=== PATIENT | female | born 1970 | race Caucasian/White ===

== ENCOUNTER 2016-06-27 16:02 | Inpatient (IN) | payer BC ==
--- NOTE | 2016-06-27 16:03 | HP ---
SUPERVISING PHYSICIAN: Festus Li M.D. CHIEF COMPLAINT: Right elbow pain. HISTORY OF PRESENT ILLNESS: Ms. Lina Sepulveda is a 46 year-old female patient that is a patient of Dr. Li who was previously seen 3 days prior to admission in the clinic for right elbow pain. She noted the pain had started approximately 2 weeks previously and denies any obvious precipitating events or injuries or other traumatic events. She notes that the pain is diffuse over the elbow and radiates to the upper arm, shoulder and forearm. She notes that the intensity is constant and sharp. She had an injection 3 days previously with Celestone and notes that the pain has worsened since the injection to the elbow. Given that the patient has failed to respond to previous outpatient treatment plan and the pain is worsening with a concern for possible infection an elevated white count, the patient to be admitted to the hospital for further treatment and evaluation with orthopedic consultation. The patient is admitted in stable condition. PAST MEDICAL HISTORY: 1. Hyperlipidemia. 2. Diverticulosis. 3. Liver hemangioma. PAST SURGICAL HISTORY: 1. Appendectomy. 2. Cholecystectomy. 3. Hernia repair. 4. Hysterectomy with bilateral salpingo-oophorectomy. 5. Tonsillectomy. 6. Left hemicolectomy for recurrent diverticulosis. HOME MEDICATIONS: 1. Estradiol 0.1 mg daily Sundays and Wednesdays. 2. Robinul 1 mg twice daily as needed. 3. Gabapentin 3 tablets daily. 4. Citalopram 40 mg daily. 5. Gemfibrozil 600 mg twice daily. ALLERGIES: NO KNOWN DRUG ALLERGIES. FAMILY HISTORY: History of hypothyroidism in her mother, otherwise unremarkable. SOCIAL HISTORY: The patient is and a homemaker. Lives in [place]. She is a previous smoker but quit many years previous. She does drink alcohol occasionally but denies any illicit drug use. REVIEW OF SYSTEMS: CONSTITUTIONAL: Positive for insomnia due to pain in the elbow, but negative for any fatigue, fever, night sweats. CARDIOVASCULAR: Denies any chest pains, palpitations, tachycardia, orthopnea, edema or syncopal episodes. RESPIRATORY: Denies any cough, dysuria, hemoptysis. GASTROINTESTINAL: Negative for any abdominal pains, heartburn, constipation, diarrhea or stool changes. GENITOURINARY: Negative for any hematuria, menstrual problems, polyuria or any vagina discharges. MUSCULOSKELETAL: Positive as noted in History of Present Illness for pain in the right elbow. NEUROLOGIC: Negative for any paresthesia or weakness. PHYSICAL EXAMINATION: VITAL SIGNS: Temperature 98.3, pulse 82, blood pressure 106/70, respirations 16 , O2 sat 94% on room air. Weight on admission 106.8 kg. GENERAL: The patient appears to be in no distress. She is well-nourished, well -hydrated. HEENT: Tympanic membranes are clear bilaterally. Oropharynx is pink and moist without any lesions. NECK: No jugular venous distention. CHEST: Lungs are clear to auscultation bilaterally without any rhonchi, wheezing or rales. CARDIOVASCULAR: Regular rate and rhythm without appreciable murmurs, gallops, or rubs. ABDOMEN: Obese but soft, non-tender with positive bowel sounds. EXTREMITIES: There is notable pain over the right olecranon process and lateral epicondyle. She does have good passive range of motion. She had some pain noted on resistance with lateral rotation of the hand. Calibration Tester are strong and equal. There is no reported sensation changes. No reported paresthesias. The area is without any noticeable erythema or swelling. There is pain with palpation directly over the lateral epicondyle but no areas of crepitus. No consolidations. NEUROLOGIC: She is alert and oriented times three. LABORATORY: White count on admission showed a mild leukocytosis of 13.1, hemoglobin 13.2, hematocrit 38.6, platelet count 287,000. Differential shows to be without a left shift. Chemistries show normal electrolytes with potassium 3.7, BUN 21, creatinine 0.6, glucose 118. Liver functions show to be within normal limits. C reactive protein was slightly elevated at 1.1. She had 2 blood cultures that are pending. CT of the elbow without contrast is pending. ASSESSMENT: 1. Acute lateral epicondylitis of the right elbow with exacerbation failing to respond to outpatient treatment with intraarticular injection with Celestone with no obvious signs of infection. 2. History of diverticulosis. 3. Hyperlipidemia. 4. Leukocytosis likely to demargination due to ongoing pain, but can not fully rule out infection at time of admit. PLAN: The patient will be admitted to the hospital for further treatment and evaluation. Consultation with orthopedic services through Dr. Lepe is requested and pending. Will provide the patient with pain control currently with Hydrocodone and some Toradol. Will also utilize cold and warm compresses as needed to decrease some inflammation, and again await consultation from orthopedic services and results of the CT scan. Will consider starting the patient on vancomycin for concerns for underlying infection, but will wait for final consultation with Dr. Lepe in regards to ultimate treatment plan and antibiotic coverage. Anticipate discharge possibly tomorrow with anticipated length of stay to be 1 to 2 days. Until then, will continue to monitor the patient closely and treat appropriately. #[id number] [facility]
[2016-06-27] MEDS ORDERED: ACETAMINOPHEN 325 MG TAB PO PRN (16:38)
[2016-06-27] MEDS ORDERED: HYDROcodone 5MG/APAP 325MG 1 EA TAB PO PRN (16:38)
[2016-06-27] MEDS ORDERED: IV SET AND CAP CHANGE INJ INJ SCH (17:00)
[2016-06-27] MEDS ORDERED: VANCOMYCIN PER PHARMACY INJ SCH (17:00)
[2016-06-27] MEDS ORDERED: PANTOPRAZOLE SODIUM IV 40 MG VIAL IV SCH (18:00)
[2016-06-27] MEDS ORDERED: KETOROLAC TROMETHAMINE INJ 60 MG/2 ML VIAL IM ONE (18:34)
[2016-06-27] MEDS ORDERED: SODIUM CHLORIDE 0.9% 10 ML VIAL ONE (18:35)
[2016-06-27] MEDS: KETOROLAC TROMETHAMINE INJ 30 MG/ML VIAL IV SCH (18:44)
[2016-06-27] MEDS: ACETAMINOPHEN W/COD #3 TAB 1 EA TAB PO PRN (19:26)
--- NOTE | 2016-06-27 19:37 | PCM.CORE ---
Physician DVT/VTE - Nurse DVT Assessment & Total Each Risk Factor Represents 3 Points: Medical PT with Hx of IA, CHF, Severe infection/sepsis Each Risk Factor Represents 1 Point: Age 41-60 Each Risk Factor is 1 Point: Obesity (BMI >25) DVT Assessment Score: 5 - 5 or more Very High Risk Treatments: Early Ambulation *, Sequential Compression Device Pharmacological: Enoxaparin 40mg SQ Daily
[2016-06-27] MEDS ORDERED: ENOXAPARIN SODIUM 40 MG/0.4 ML SYG SUBCU SCH (20:00)
--- NOTE | 2016-06-27 20:15 | CONS ---
DATE OF CONSULTATION: 06/27/16 CHIEF COMPLAINT: Right elbow pain. HISTORY OF PRESENT ILLNESS: Anca is a 46 year-old female with a history of right elbow pain that has been going on for about 3 weeks. Anca had an injection done for that pain several days ago and ever since then has had pretty severe pain that has limited some of her activities. She denies any direct trauma. She has not had any fevers, denies any radiation of pain and also denies any neurologic symptoms. She was seen by Dr. Li and Dr. Li randall some labs. He had some slight concern which may have had an adverse reaction to the injection, and may have developed infection. As such, Dr. Li took the appropriate steps to have her admitted. Subsequent to that, Dr. Li called me to consult on the patient. PAST SURGICAL HISTORY: 1. Appendectomy. 2. Cholecystectomy. 3. Herniorrhaphy. 4. Hysterectomy. 5. Tonsillectomy. 6. Tubal ligation. 7. Partial colectomy. CURRENT MEDICATIONS: 1. Gemfibrozil. 2. Citalopram. 3. Tylenol #3. 4. Naprosyn. 5. Vivelle. 6. Robinul. ALLERGIES: NO KNOWN DRUG ALLERGIES. SOCIAL HISTORY: She does not drink, smoke or use any illicit drugs. REVIEW OF SYSTEMS: Negative except as indicated in the history of present illness. PHYSICAL EXAMINATION: MENTAL STATUS: The patient is awake, alert, and is able to give a good history and participate in the physical. The patient is oriented to person, place and time. SKIN: Normal tone and turgor. MUSCULOSKELETAL: She has full range of motion in the elbow and she only has pain on the lateral aspect with the extreme of flexion. Otherwise she is without significant pain during range of motion. She has no erythema laterally. She has no swelling and there is no increased warmth at this time. Sensation is intact. 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 LABORATORY: Laboratories were drawn and show a white count of approximately 13 , an ESR of 12 and a CRP of 1.1. ASSESSMENT: 1. Elbow pain status post injection. PLAN: She has had no true progression of the pain since the injection itself. She has no erythema. No discrete fluid collection obvious. There is no increased warmth and she has had no constitutional symptoms. At this point, I do not think we are dealing with any type of infectious process. Despite that, I think it would be prudent to keep an eye on her in the hospital. We are going to hold off on any antibiotics and utilize some antiinflammatories. Will reassess and ensure she is making positive progress. I appreciate you allowing me to participate in this patient's care. #[id number] [facility]
[2016-06-27] MEDS: SODIUM CHLORIDE 0.9% (FLUSH) 10 ML SYG IV PRN ×2 (20:37→22:23)
[2016-06-27] MEDS ORDERED: TEMAZEPAM 15 MG CAP PO PRN (21:22)
[2016-06-27] MEDS ORDERED: MORPHINE SULFATE INJ 10 MG/ML VIAL IV ONE (22:03)
[2016-06-28] MEDS ORDERED: KETOROLAC TROMETHAMINE INJ 60 MG/2 ML VIAL IM ONE (02:03)
[2016-06-28] MEDS: KETOROLAC TROMETHAMINE INJ 30 MG/ML VIAL IV SCH ×4 (02:20→14:21)
[2016-06-28] MEDS: SODIUM CHLORIDE 0.9% (FLUSH) 10 ML SYG IV PRN (02:21)
[2016-06-28] MEDS ORDERED: ACETAMINOPHEN W/COD #3 TAB 1 EA TAB ONE (10:01)
[2016-06-28] MEDS: ACETAMINOPHEN W/COD #3 TAB 1 EA TAB PO PRN (10:02)
--- NOTE | 2016-06-28 11:00 | PN ---
DATE: 06/28/16 Ms. Lina Sepulveda is resting comfortably with the arm fully flexed. Upon waking her, she fully extends the arm. There continues to be a lack of swelling, erythema, or crepitus. She is currently afebrile. At this point, as last night, I think are simply dealing with a reaction to the steroid injection that she was given previously. I do not see any indication at this time to leave her as an inpatient. I think she is okay for discharge, however, she should be given instructions on return immediately should any change in her condition occur. Otherwise, she will followup with Dr. Li per his schedule. #[id number] [facility]
[2016-06-28] MEDS ORDERED: GLYCOPYRROLATE 1 MG PO PRN (12:49)
[2016-06-28] MEDS ORDERED: HYDROcodone 10MG/APAP 325MG 1 EA TAB PO ONE (12:49)
[2016-06-28 14:50] VITALS: BP 113/75; TEMP 98.3; O2SAT 93
[2016-06-28] MEDS ORDERED: GEMFIBROZIL 600 MG TAB PO SCH (16:30)
[2016-06-28] MEDS ORDERED: GABAPENTIN PO SCH (17:00)
[2016-06-28] MEDS ORDERED: ENOXAPARIN SODIUM 40 MG/0.4 ML SYG SUBCU SCH (21:00)
[2016-06-28] MEDS ORDERED: PANTOPRAZOLE SODIUM IV 40 MG VIAL IV SCH (21:00)
[2016-06-28] MEDS ORDERED: SODIUM CHLORIDE 0.9% (FLUSH) 10 ML SYG IV SCH (21:00)
[2016-06-29] MEDS ORDERED: CITALOPRAM HBR 20 MG TAB PO SCH (09:00)
[2016-06-30] MEDS ORDERED: ESTRADIOL 0.1 MG TD SCH (12:49)
--- NOTE | 2016-07-01 13:29 | DS ---
SUPERVISING PHYSICIAN: Vitaliy Myrick MD DISCHARGE DIAGNOSIS: 1. Acute lateral epicondylitis of the right elbow with exacerbation from reaction to steroid injection in the outpatient setting, intraarticular injection with Celestone without any obvious signs of infection. 2. History of diverticulosis. 3. Hyperlipidemia. 4. Leukocytosis likely to demargination due to ongoing pain without any signs or symptoms of infection after hospitalization and at time of discharge. HISTORY OF PRESENT ILLNESS: Ms. Lina Sepulveda is a 46-year-old female patient that is a patient of Dr. Li who was previously seen 3 days prior to admission in the clinic for right elbow pain. She noted the pain had started approximately 2 weeks previously and denies any obvious precipitating events or injuries or other traumatic events. She notes that the pain is diffuse over the elbow and radiates to the upper arm, shoulder and forearm. She notes that the intensity is constant and sharp. She had an injection 3 days previously with Celestone and notes that the pain had worsened since the injection to the elbow. Given that the patient had failed to respond to previous outpatient treatment plan and the pain was worsening with a concern for possible infection an elevated white count, the patient was admitted to the hospital for further treatment and evaluation with orthopedic consultation. The patient is admitted in stable condition. LABORATORY: White count on admission showed a white count of 13.1. At discharge, it was 8.7. Otherwise, CBC was within normal limits. Chemistries shows normal electrolytes both on admission and at discharge with potassium 4.1 , BUN and creatinine were essentially unchanged, at discharge BUN 21 and creatinine 0.61. C-reactive protein was 1.1. Liver functions were all within normal limits. MICROBIOLOGY: Two blood cultures were collected and showed no growth at 48 hours. RADIOLOGY: There were no radiographic studies completed of the arm. On consultation with Dr. Lepe, he recommended that she not have a CT of the elbow as there were no significant signs of infection. CONSULTATION: Orthopedic services, [place] Lepe MD. Please refer to his consultation report for full details. HOSPITAL COURSE: The patient was admitted on 06/28/16 with initiation of treatment to include pain medicine with anti-inflammatories, cold compresses and rest. Initially, the patient was to have antibiotic started to include Rocephin. However, after the patient was seen in consultation with orthopedic services, Dr. Lepe recommended that she not be started on antibiotics as there was no significant sign of infection. He felt that the leukocytosis was more likely an inflammatory response to the localized injection. The patient progressed well and did well with pain management and on the morning of discharge, had much more range of motion and was having less pain in the elbow and was felt well enough to be continued in the outpatient setting. The patient did have some insomnia and requested some sleep aid as she had not been sleeping for the last three days prior to admission. She was given temazepam and noted she had a significant amount of sleep and was feeling much better with that. Therefore, she requested she have at least a couple days more at home to assist with insomnia. PLAN: The patient was discharged on 06/28/16 with instructions to followup with Dr. Li in the following week and to resume all her home medications as instructed and start new medications as directed. Per Dr. Lepe's instructions, she was to have no pulling, pushing or exercises with her arm until she was seen in followup with Dr. Li or the arm was completely better. She could use cold compresses as tolerated to help decrease inflammation and utilize pain management to include meloxicam, anti-inflammatories, and to return to the hospital should she have any worsening of her symptoms. At time of discharge, she had new prescriptions to include: 1. Restoril 15 mg at bedtime, #5, for insomnia. 2. Vivlodex 5 mg daily, #14. She was instructed to start taking an [id number] proton pump inhibitor should she have any indigestion type symptoms while taking the Meloxicam. She was discharged in stable condition with instructions to followup with Dr. Li. #[id number] [facility]
== END 2016-06-28 17:55 | disposition home or self-care (01) | DRG 558 ==
LOC: MS 16:02 → OBSVTOIN 16:02
PROVIDERS: ADMIT Family Medicine; ATTEND Nurse Practitioner Family
DX: M77.11 Lateral epicondylitis, right elbow (principal); Z68.41 Body mass index [BMI] 40.0-44.9, adult; E78.5 Hyperlipidemia, unspecified; T38.0X5A Adverse effect of glucocorticoids and synthetic analogues, initial encounter; E66.9 Obesity, unspecified; D72.829 Elevated white blood cell count, unspecified; Z87.891 Personal history of nicotine dependence; Y92.89 Other specified places as the place of occurrence of the external cause; Z79.899 Other long term (current) drug therapy; Z79.1 Long term (current) use of non-steroidal anti-inflammatories (NSAID)

== ENCOUNTER → 2016-08-14 | Outpatient (CLI) | payer BC ==
--- NOTE | 2016-08-15 08:34 | MRI ---
EXAM DESCRIPTION: MRI right elbow CLINICAL HISTORY: Right elbow pain for 2 months. Previous steroid injection. Tendon rupture COMPARISON: None. TECHNIQUE: Multiplanar, multisequence MR images of the right elbow FINDINGS: Tendinosis and high-grade interstitial origin tear of the common extensor tendon spanning about 9 x 9 mm at the tendon insertion. Interstitial fluid extends over the proximal tendon about 1.9 cm in length. Radial collateral and lateral ulnar collateral ligaments are intact Common flexor tendon is normal. Ulnar collateral ligament intact Mild insertional chronic biceps tendinosis. No tear. Brachialis tendon is normal. Mild insertional triceps tendinosis. The muscles around the elbow are normal. No high-grade central articular chondrosis or osteochondral lesion. Minimal edema along the anterior medial humerus likely from marginal chondrosis. No joint effusion or synovitis Red marrow seen over small region distal humerus and proximal radius. No diagnostic abnormality along the neurovascular structures. There is mild increased signal in the ulnar nerve in the cubital tunnel. No distal denervation edema or atrophy IMPRESSION: Tendinosis and high-grade interstitial partial tear, extensor tendon Electronically signed by: Trace Esposito MD 08/15/2016 8:33 AM CDT
== END | disposition home or self-care (01) ==
LOC: MRI 08:56
PROVIDERS: ATTEND Orthopaedic Surgery
DX: M62.10 Other rupture of muscle (nontraumatic), unspecified site (principal)

== ENCOUNTER 2019-02-10 18:14 | Emergency (ER) | payer BC, MEDICAID ==
[2019-02-10 18:40] VITALS: TEMP 99.3
[2019-02-10] MEDS ORDERED: KETOROLAC TROMETHAMINE INJ 30 MG/ML VIAL IV ONE (19:37)
--- NOTE | 2019-02-10 19:37 | ED.PDOC ---
History of Present Illness - General Chief Complaint: GI Problem Time Seen by Provider: 02/10/19 19:36 Information Source: patient Exam Limitations: no limitations - History of Present Illness Initial Comments: 48 yo F who presents for LLQ abd pain, described as burning sensation, constant, associated decreased appetite, nausea, pain is worse with urination. Hx of diverticulitis with remote hx of colon resection. Denies f/c, cough, congestion, CP, SOB, dysuria, hematuria, v/d, hx of kidney stones, vag sx, concerns for STD. Review of Systems - Review of Systems Constitutional: Denies: chills, fever EENTM: States: no symptoms reported Respiratory: Denies: cough, short of breath Cardiology: Denies: chest pain, edema, palpitations Gastrointestinal/Abdominal: States: abdominal pain, nausea. Denies: constipation, diarrhea, vomiting Genitourinary: Denies: dysuria, frequency, hematuria Musculoskeletal: Denies: back pain, neck pain Skin: Denies: change in color, lesions, rash Neurological: Denies: headache, numbness, weakness Endocrine: Denies: increased thirst, increased urine Past Medical History (General) - Patient Medical History Hx Seizures: No Hx Stroke: No Hx Dementia: No Hx Asthma: No Hx of COPD: No Hx Cardiac Disorders: Yes - [place] 2014 Hx Congestive Heart Failure: No Hx Pacemaker: No Hx Hypertension: No Hx Thyroid Disease: No Hx Diabetes: Yes - on metformin Hx Gastroesophageal Reflux: No Hx Renal Disease: No Hx Cancer: No Hx of HIV: No Hx Hepatitis C: No Hx MRSA: No Surgical History: appendectomy, tonsillectomy, Hysterectomy, other - Vaccination History Hx Tetanus, Diphtheria Vaccination: Yes Hx Influenza Vaccination: No Hx Pneumococcal Vaccination: No - Social History Hx Tobacco Use: No Hx Chewing Tobacco Use: No Hx Alcohol Use: No Hx Substance Use: No Hx Substance Use Treatment: No Hx Depression: Yes Hx Physical Abuse: No Hx Emotional Abuse: No Hx Suspected Abuse: No - Female History Patient : No Family Medical History - Family History Mother Family History: Unknown Physical Exam - Physical Exam General Appearance: Alert, Comfortable, No apparent distress, Well Developed, Well Nourished, Other - Obese Eyes, Ears, Nose, Throat Exam: normal ENT inspection Neck: non-tender, full range of motion, supple Respiratory: chest non-tender, lungs clear, normal breath sounds, no respiratory distress, no accessory muscle use Cardiovascular/Chest: normal peripheral pulses, regular rate, rhythm, no edema, no gallop, no JVD, no murmur Peripheral Pulses: No deficit Gastrointestinal/Abdominal: normal bowel sounds, soft, no organomegaly, no pulsatile mass, tenderness - LLQ Back Exam: normal inspection, no CVA tenderness, no vertebral tenderness Extremity: normal range of motion, non-tender, normal inspection, no pedal edema, no calf tenderness Neurologic: no motor/sensory deficits, alert, normal mood/affect Skin Exam: normal color, warm/dry Progress - Progress Progress: 02/10/19 21:47 I have explained and reviewed all results with the pt. I explained that emergent conditions may arise and to return to the ER for new, worsening, or any persistent conditions. I've explained the importance of f/u for recheck. All questions and concerns addressed at this time. Pt understands and agrees with plan. Pt well appearing, NAD, is stable for discharge. Elvira Alvarez MD Emergency Medicine Physician Billing Number [id number] - Results/Orders Results/Orders: 02/10/19 19:36 Hold Metformin x 48Hrs [id number] Laboratory Results - last 24 hr 02/10/19 02/10/19 02/10/19 18:53 18:57 18:57 WBC 10.7 RBC 4.37 Hgb 13.1 Hct 37.8 MCV 86.4 MCH 30.1 MCHC 34.8 RDW 13.6 Plt Count 323 MPV 7.5 Absolute Neuts (auto) 6.60 Absolute Lymphs (auto) 3.10 Absolute Monos (auto) 0.60 Absolute Eos (auto) 0.40 Absolute Basos (auto) 0.00 Neutrophils % 61.5 Lymphocytes % 28.7 Monocytes % 5.4 Eosinophils % 4.1 Basophils % 0.3 Sodium Potassium Chloride Carbon Dioxide Anion Gap BUN Creatinine BUN/Creatinine Ratio Random Glucose Serum Osmolality Calcium Total Bilirubin 0.5 Direct Bilirubin 0.1 Indirect Bilirubin 0.4 AST 25 ALT 27 Alkaline Phosphatase 89 Serum Total Protein 7.6 Albumin 4.2 Urine Color Yellow Urine Appearance Sl cloudy Urine pH 5.5 Ur Specific Cumming 1.015 Urine Protein Negative Urine Glucose (UA) Negative Urine Ketones Negative Urine Blood Negative Urine Nitrite Negative Urine Bilirubin Negative Urine Urobilinogen 0.2 Ur Leukocyte Esterase Trace H Urine RBC 0-1 Urine WBC 1-3 Ur Epithelial Cells 3-5 Urine Bacteria 2+ H 02/10/19 18:57 WBC RBC Hgb Hct MCV MCH MCHC RDW Plt Count MPV Absolute Neuts (auto) Absolute Lymphs (auto) Absolute Monos (auto) Absolute Eos (auto) Absolute Basos (auto) Neutrophils % Lymphocytes % Monocytes % Eosinophils % Basophils % Sodium 142 Potassium 3.8 Chloride 102 Carbon Dioxide 28 Anion Gap 15.8 BUN 10 Creatinine 0.58 L BUN/Creatinine Ratio 17.2 Random Glucose 97 Serum Osmolality 282.1 Calcium 9.6 Total Bilirubin Direct Bilirubin Indirect Bilirubin AST ALT Alkaline Phosphatase Serum Total Protein Albumin Urine Color Urine Appearance Urine pH Ur Specific Cum[place] Urine Protein Urine Glucose (UA) Urine Ketones Urine Blood Urine Nitrite Urine Bilirubin Urine Urobilinogen Ur Leukocyte Esterase Urine RBC Urine WBC Ur Epithelial Cells Urine Bacteria CT abd/pelvis: EXAM: CT Abdomen and Pelvis With Intravenous Contrast CLINICAL HISTORY: The patient is 48 years old and is Female; pain TECHNIQUE: Axial computed tomography images of the abdomen and pelvis with intravenous contrast. Sagittal and coronal reformatted images were created and reviewed. This CT exam was performed using one or more of the following dose reduction techniques: automated exposure control, adjustment of the mA and/or kV according to patient size, and/or use of iterative reconstruction technique. COMPARISON: November 19, 2012 FINDINGS: Lung bases: Unremarkable. No mass. No consolidation. ABDOMEN: Liver: Hyperdense lesion within the posterior right lobe of liver, unchanged from prior study from October 2012, favoring benign etiology . Diffuse low- attenuation throughout the liver consistent with hepatocellular disease/fatty infiltration. Gallbladder and bile ducts: Cholecystectomy No ductal dilation. Pancreas: Unremarkable. No mass. No ductal dilation. Spleen: Unremarkable. No splenomegaly. Adrenals: Unremarkable. No mass. Kidneys and ureters: Unremarkable. No solid mass. No hydronephrosis. Stomach and bowel: Colonic diverticulosis with focal wall thickening of the sigmoid colon consistent with acute diverticulitis. No obstruction. PELVIS: Appendix: No findings to suggest acute appendicitis. Bladder: Unremarkable. No mass. Reproductive: Unremarkable as visualized. ABDOMEN and PELVIS: Intraperitoneal space: Unremarkable. No free air. No significant fluid collection. Bones/joints: No acute fracture. No dislocation. Soft tissues: Unremarkable. Vasculature: Scattered atherosclerotic vascular calcifications No abdominal aortic aneurysm. Lymph nodes: Unremarkable. No enlarged lymph nodes. IMPRESSION: 1. Findings consistent with acute diverticulitis sigmoid colon. No cheli perforation or abscess formation. 2. Hyperdense lesion within the posterior right lobe of liver, unchanged from prior study from October 2012, favoring benign etiology such as a hemangioma or adenoma. 3. Hepatic steatosis. Electronically signed by: Salinas Knowles MD 02/10/2019 9:33 PM [facility] Vital Signs - 24 hr 02/10/19 02/10/19 02/10/19 18:39 19:40 20:40 Temperature 99.3 F Pulse Rate [ 78 77 77 left brachial] Respiratory 20 18 18 Rate Blood Pressure 155/98 150/86 157/75 [left brachial] O2 Sat by Pulse 95 97 97 Oximetry 02/10/19 02/10/19 21:40 22:22 Temperature 99.3 F Pulse Rate [ 79 79 left brachial] Respiratory 18 18 Rate Blood Pressure 141/83 141/83 [left brachial] O2 Sat by Pulse 97 97 Oximetry Departure - Departure Clinical Impression: Acute diverticulitis, Liver lesion Time of Disposition: 21:38 Disposition: Discharge to Home or Self Care Health Concerns: Condition: stable Departure Forms: ED Discharge - Pt. Copy, Patient Portal Self Enrollment Instructions: Diverticulitis (DC) Referrals: Festus Li MD [Primary Care Provider] - 1-5 Days Prescriptions: Amoxicillin & Pot Clavulanate [Augmentin Tab] 875 mg PO BID #20 tab metroNIDAZOLE [Flagyl] 500 mg PO Q8H #30 tab Ondansetron Odt [Zofran ODT] 4 mg PO Q6H PRN #12 tab PRN Reason: Nausea Home Medications: Ambulatory Orders Estradiol [Vivelle-Dot] 0.1 mg TD SUWE 05/31/14 Acetamin W/Cod #3 Tab [Tylenol w/CODEINE #3] 1 ea PO Q4H PRN 06/27/16 Citalopram Hydrobromide 40 mg PO DAILY 06/27/16 Gabapentin (Once-Daily) [Gralise] 3 ea PO 1700 06/27/16 Gemfibrozil 600 mg PO BID 06/27/16 Glycopyrrolate [Robinul] 1 mg PO BID PRN 06/27/16 Meloxicam [Vivlodex] 5 mg PO DAILY #14 cap 03/31/17 Temazepam [Restoril] 15 mg PO BEDTIME PRN #5 cap 06/28/16 Amoxicillin & Pot Clavulanate [Augmentin Tab] 875 mg PO BID #20 tab 02/10/19 Ondansetron Odt [Zofran ODT] 4 mg PO Q6H PRN #12 tab 02/10/19 metroNIDAZOLE [Flagyl] 500 mg PO Q8H #30 tab 02/10/19
--- NOTE | 2019-02-10 21:34 | CT ---
EXAM: CT Abdomen and Pelvis With Intravenous Contrast CLINICAL HISTORY: The patient is 48 years old and is Female; pain TECHNIQUE: Axial computed tomography images of the abdomen and pelvis with intravenous contrast. Sagittal and coronal reformatted images were created and reviewed. This CT exam was performed using one or more of the following dose reduction techniques: automated exposure control, adjustment of the mA and/or kV according to patient size, and/or use of iterative reconstruction technique. COMPARISON: November 19, 2012 FINDINGS: Lung bases: Unremarkable. No mass. No consolidation. ABDOMEN: Liver: Hyperdense lesion within the posterior right lobe of liver, unchanged from prior study from October 2012, favoring benign etiology . Diffuse low-attenuation throughout the liver consistent with hepatocellular disease/fatty infiltration. Gallbladder and bile ducts: Cholecystectomy No ductal dilation. Pancreas: Unremarkable. No mass. No ductal dilation. Spleen: Unremarkable. No splenomegaly. Adrenals: Unremarkable. No mass. Kidneys and ureters: Unremarkable. No solid mass. No hydronephrosis. Stomach and bowel: Colonic diverticulosis with focal wall thickening of the sigmoid colon consistent with acute diverticulitis. No obstruction. PELVIS: Appendix: No findings to suggest acute appendicitis. Bladder: Unremarkable. No mass. Reproductive: Unremarkable as visualized. ABDOMEN and PELVIS: Intraperitoneal space: Unremarkable. No free air. No significant fluid collection. Bones/joints: No acute fracture. No dislocation. Soft tissues: Unremarkable. Vasculature: Scattered atherosclerotic vascular calcifications No abdominal aortic aneurysm. Lymph nodes: Unremarkable. No enlarged lymph nodes. IMPRESSION: 1. Findings consistent with acute diverticulitis sigmoid colon. No cheli perforation or abscess formation. 2. Hyperdense lesion within the posterior right lobe of liver, unchanged from prior study from October 2012, favoring benign etiology such as a hemangioma or adenoma. 3. Hepatic steatosis. Electronically signed by: Salinas Knowles MD 02/10/2019 9:33 PM CUTTER TENDER
[2019-02-10 22:00] VITALS: BP 141/83; O2SAT 97
[2019-02-10] MEDS ORDERED: metroNIDAZOLE 500 MG TAB PO ONE (22:05)
[2019-02-10] MEDS ORDERED: ONDANSETRON ODT 8 MG TAB SL ONE (22:05)
[2019-02-10] MEDS: AMOXICILLIN & POT CLAVULANATE 875 MG TAB PO ONE (22:15)
== END 2019-02-10 22:22 | disposition home or self-care (01) ==
LOC: ER 18:14
DX: K57.32 Diverticulitis of large intestine without perforation or abscess without bleeding (principal); K76.9 Liver disease, unspecified; E66.9 Obesity, unspecified; F32.9 Major depressive disorder, single episode, unspecified; I25.2 Old myocardial infarction; E11.9 Type 2 diabetes mellitus without complications; Z90.49 Acquired absence of other specified parts of digestive tract; Z79.84 Long term (current) use of oral hypoglycemic drugs; Z90.710 Acquired absence of both cervix and uterus; Z68.41 Body mass index [BMI] 40.0-44.9, adult
CPT/HCPCS: 74177; 80048; 80076; 81001; 85025; J1885

== ENCOUNTER 2019-08-11 20:22 | Emergency (ER) | payer MEDICAID, OTHER ==
--- NOTE | 2019-08-11 20:38 | ED.PDOC ---
History of Present Illness - General Time Seen by Provider: 08/11/19 20:34 Additional Information: This is a 41-year-old female, with no depression, history of diabetes has had some abdominal surgeries in the past, patient presents to the ER because she was exposed to several live wires and she felt an electrical current on her right foot at the dorsum of the foot, patient did not lose consciousness but she admits that it immediately after the exposure she felt some palpitations and a headache, patient arrived POV without any distress denies any chest pain no neurological deficit and no complaints at the moment Patient does not know the voltage that the live wire that she was exposed to - History of Present Illness Timing/Duration: resolved prior to arrival Severity: moderate Improving Factors: nothing Worsening Factors: nothing Associated Symptoms: headaches, other - Palpitations Allergies/Adverse Reactions: Allergies NO KNOWN ALLERGY Allergy (Verified 08/11/19 20:45) Home Medications: Ambulatory Orders Estradiol [Vivelle-Dot] 0.1 mg TD SUWE 05/31/14 Acetamin W/Cod #3 Tab [Tylenol w/CODEINE #3] 1 ea PO Q4H PRN 06/27/16 Citalopram Hydrobromide 40 mg PO DAILY 06/27/16 Gabapentin (Once-Daily) [Gralise] 3 ea PO 1700 06/27/16 Gemfibrozil 600 mg PO BID 06/27/16 Glycopyrrolate [Robinul] 1 mg PO BID PRN 06/27/16 Meloxicam [Vivlodex] 5 mg PO DAILY #14 cap 06/28/16 Temazepam [Restoril] 15 mg PO BEDTIME PRN #5 cap 06/28/16 Amoxicillin & Pot Clavulanate [Augmentin Tab] 875 mg PO BID #20 tab 02/10/19 Ondansetron Odt [Zofran ODT] 4 mg PO Q6H PRN #12 tab 02/10/19 metroNIDAZOLE [Flagyl] 500 mg PO Q8H #30 tab 02/10/19 Acetaminophen W/ Codeine [Tylenol W/ CODEINE #3] 1 ea PO Q6H #16 06/16/19 Clindamycin HCl 300 mg PO QID #28 cap 06/16/19 Review of Systems - Review of Systems Constitutional: States: no symptoms reported EENTM: States: no symptoms reported Respiratory: States: no symptoms reported Cardiology: States: palpitations Gastrointestinal/Abdominal: States: no symptoms reported Genitourinary: States: no symptoms reported Musculoskeletal: States: no symptoms reported Skin: States: no symptoms reported Neurological: States: headache Endocrine: States: no symptoms reported Past Medical History (General) - Patient Medical History Hx Seizures: No Hx Stroke: No Hx Dementia: No Hx Asthma: No Hx of COPD: No Hx Cardiac Disorders: Yes - CT 2014 Hx Congestive Heart Failure: No Hx Pacemaker: No Hx Hypertension: No Hx Thyroid Disease: No Hx Diabetes: Yes - on metformin Hx Gastroesophageal Reflux: No Hx Renal Disease: No Hx Cancer: No Hx of HIV: No Hx Hepatitis C: No Hx MRSA: No - Vaccination History Hx Tetanus, Diphtheria Vaccination: Yes Hx Influenza Vaccination: No Hx Pneumococcal Vaccination: No - Social History Hx Tobacco Use: No Hx Chewing Tobacco Use: No Hx Alcohol Use: No Hx Substance Use: No Hx Substance Use Treatment: No Hx Depression: Yes Hx Physical Abuse: No Hx Emotional Abuse: No Hx Suspected Abuse: No - Female History Patient : No Family Medical History - Family History Mother Family History: Unknown Physical Exam - Physical Exam General Appearance: Alert, Well Developed, Well Groomed, Well Hydrated, Well Nourished Eye Exam: bilateral normal Ears, Nose, Throat: hearing grossly normal, normal ENT inspection, normal pharynx Neck: non-tender, full range of motion, supple, normal inspection Respiratory: chest non-tender, lungs clear, normal breath sounds, no respiratory distress, no accessory muscle use Cardiovascular/Chest: normal peripheral pulses, regular rate, rhythm, no edema, no gallop, no JVD, no murmur Peripheral Pulses: radial,right: 2+ Gastrointestinal/Abdominal: normal bowel sounds, non tender, soft, no organomegaly, no pulsatile mass Extremity: normal range of motion, non-tender, normal inspection, no pedal edema, other - There is some evidence of capillary injury at the area of the dorsum of the right foot at the area where patient got exposed to the live wire 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 But those symptoms have been gone since she got into the ER, I did order an EKG to rule out any arrhythmia or PVCs to rule out any evidence of dysrhythmia after the electrical injury. The EKG showed normal sinus rhythm heart rate of 73 no PVCs no short FL no delta waves no acute ischemic changes. Patient potassium was also within normal limits, patient was reassured that usually after electrical current some people will might experience some cardiac dysrhythmias and some respiratory depression that could be lethal but usually after exposure with a low voltage current most people would not develop a sequela after the initial exposure Departure - Departure Clinical Impression: Electric current accident Qualifiers: Encounter type: initial encounter Qualified Code(s): W86.8XXA - Exposure to other electric current, initial encounter Disposition: Discharge to Home or Self Care Condition: Fair Instructions: Electrical Shock Diet: resume usual diet Activity: increase activity as tolerated Referrals: Festus Li MD [Primary Care Provider] - 1-2 Weeks Home Medications: Ambulatory Orders Estradiol [Vivelle-Dot] 0.1 mg TD SUWE 05/31/14 Acetamin W/Cod #3 Tab [Tylenol w/CODEINE #3] 1 ea PO Q4H PRN 06/27/16 Citalopram Hydrobromide 40 mg PO DAILY 06/27/16 Gabapentin (Once-Daily) [Gralise] 3 ea PO 1700 06/27/16 Gemfibrozil 600 mg PO BID 06/27/16 Glycopyrrolate [Robinul] 1 mg PO BID PRN 06/27/16 Meloxicam [Vivlodex] 5 mg PO DAILY #14 cap 06/28/16 Temazepam [Restoril] 15 mg PO BEDTIME PRN #5 cap 06/28/16 Amoxicillin & Pot Clavulanate [Augmentin Tab] 875 mg PO BID #20 tab 02/10/19 Ondansetron Odt [Zofran ODT] 4 mg PO Q6H PRN #12 tab 02/10/19 metroNIDAZOLE [Flagyl] 500 mg PO Q8H #30 tab 02/10/19 Acetaminophen W/ Codeine [Tylenol W/ CODEINE #3] 1 ea PO Q6H #16 06/16/19 Clindamycin HCl 300 mg PO QID #28 cap 06/16/19
[2019-08-11 20:45] VITALS: TEMP 99.5; O2SAT 97
[2019-08-11 21:23] VITALS: BP 151/69
== END 2019-08-11 21:28 | disposition home or self-care (01) ==
LOC: ER 20:22
DX: T75.4XXA Electrocution, initial encounter (principal); W86.8XXA Exposure to other electric current, initial encounter; Y92.9 Unspecified place or not applicable

== ENCOUNTER 2020-02-27 19:23 | Emergency (ER) | payer OTHER ==
[2020-02-27 19:42] VITALS: TEMP 98.6
[2020-02-27] MEDS ORDERED: KETOROLAC TROMETHAMINE INJ 30 MG/ML VIAL IM ONE (19:49)
--- NOTE | 2020-02-27 20:47 | RAD ---
EXAM DESCRIPTION: Femur,Left (accession [id number]), Hip,Left 2 Views (accession [id number]), Pelvis (accession [id number]) CLINICAL HISTORY: fall with pain COMPARISON: None FINDINGS: Two x-ray views of the left hip, left femur and frontal x-ray view of the pelvis were submitted. There is no acute fracture or dislocation. Bone mineralization is within normal limits. Surgical clips project over the left iliac crest. IMPRESSION: No acute fracture or dislocation. Electronically signed by: David Hairston MD 02/27/2020 8:46 PM [facility]
--- NOTE | 2020-02-27 20:48 | RAD ---
EXAM DESCRIPTION: Femur,Left (accession [id number]), Hip,Left 2 Views (accession [id number]), Pelvis (accession [id number]) CLINICAL HISTORY: fall with pain COMPARISON: None FINDINGS: Two x-ray views of the left hip, left femur and frontal x-ray view of the pelvis were submitted. There is no acute fracture or dislocation. Bone mineralization is within normal limits. Surgical clips project over the left iliac crest. IMPRESSION: No acute fracture or dislocation. Electronically signed by: David Hairston MD 02/27/2020 8:46 PM [facility]
--- NOTE | 2020-02-27 20:48 | RAD ---
EXAM DESCRIPTION: Femur,Left (accession [id number]), Hip,Left 2 Views (accession [id number]), Pelvis (accession [id number]) CLINICAL HISTORY: fall with pain COMPARISON: None FINDINGS: Two x-ray views of the left hip, left femur and frontal x-ray view of the pelvis were submitted. There is no acute fracture or dislocation. Bone mineralization is within normal limits. Surgical clips project over the left iliac crest. IMPRESSION: No acute fracture or dislocation. Electronically signed by: David Hairston MD 02/27/2020 8:46 PM [facility]
--- NOTE | 2020-02-27 20:58 | ED.PDOC ---
History of Present Illness - General Chief Complaint: Trauma Stated Complaint: fell 2 days ago hurt left hip Time Seen by Provider: 02/27/20 19:48 Source: patient Exam Limitations: no limitations - History of Present Illness Initial Comments: The patient is a 49-year-old female presented emergency room secondary to left lower extremity pain. The patient had some form of a varicose vein treatment about a week ago in that leg and she has remained sore from it since that time. She was told to monitor for any evidence of any sign of a possible DVT. The course the patient does have pain in the lower extremities which is expected from the procedure itself. I see no evidence of significant edema physically though she does believe it is swollen. I see no evidence of increased erythema. Additionally the patient fell 2 days ago and landed on her left hip. She has been ambulatory since that time but has increased pain to the left hip and the left femur area. I see no evidence of any large hematoma and edema no evidence of bruising laterally. Procedure sites appear to be healing okay at this point. She appears to be neurovascularly at her baseline. She does have some diffuse pain in the calf. No definite palpable cords posteriorly. Timing/Duration: unsure, 1 week Severity: moderate Improving Factors: immobilization Worsening Factors: movement Associated Symptoms: denies symptoms Allergies/Adverse Reactions: Allergies NO KNOWN ALLERGY Allergy (Verified 02/27/20 19:42) Home Medications: Ambulatory Orders Citalopram Hydrobromide 40 mg PO DAILY 06/27/16 metFORMIN XR [Glucophage XR] 500 mg PO DAILY 02/27/20 Review of Systems - Review of Systems Constitutional: States: no symptoms reported EENTM: States: no symptoms reported Respiratory: States: no symptoms reported Cardiology: States: no symptoms reported Gastrointestinal/Abdominal: States: no symptoms reported Genitourinary: States: no symptoms reported Musculoskeletal: States: see HPI Skin: States: no symptoms reported Neurological: States: no symptoms reported Endocrine: States: no symptoms reported Past Medical History (General) - Patient Medical History Hx Seizures: No Hx Stroke: No Hx Dementia: No Hx Asthma: No Hx of COPD: No Hx Cardiac Disorders: Yes - [place] 2014 Hx Congestive Heart Failure: No Hx Pacemaker: No Hx Hypertension: No Hx Thyroid Disease: No Hx Diabetes: Yes - on metformin Hx Gastroesophageal Reflux: No Hx Renal Disease: No Hx Cancer: No Hx of HIV: No Hx Hepatitis C: No Hx MRSA: No Surgical History: appendectomy, cholecystectomy, tonsillectomy, Hysterectomy - Vaccination History Hx Tetanus, Diphtheria Vaccination: Yes - 2020 Hx Influenza Vaccination: Yes Hx Pneumococcal Vaccination: No - Social History Hx Tobacco Use: No Hx Chewing Tobacco Use: No Hx Alcohol Use: No Hx Substance Use: No Hx Substance Use Treatment: No Hx Depression: Yes Hx Physical Abuse: No Hx Emotional Abuse: No Hx Suspected Abuse: No - Female History Patient : No Family Medical History - Family History Mother Family History: Unknown Physical Exam - Physical Exam General Appearance: Alert, Comfortable, No apparent distress Eye Exam: bilateral normal Ears, Nose, Throat: hearing grossly normal, normal pharynx Neck: non-tender, supple Respiratory: lungs clear, normal breath sounds, no respiratory distress, no accessory muscle use Cardiovascular/Chest: normal peripheral pulses, no edema, other - Regular rate Peripheral Pulses: radial,right: 2+, radial,left: 2+, dorsalis pedis,right: 2+, dorsalis pedis,left: 2+ Gastrointestinal/Abdominal: non tender, soft Rectal Exam: deferred Back Exam: no CVA tenderness, no vertebral tenderness Extremity: normal capillary refill, calf tenderness, pedal edema - Trace possibly, other - Left hip discomfort to palpation as well as to passive and active movement. 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 It has been made worse by a fall a couple of days ago. X-ray of the left hip, pelvis and femur show no evidence of any fracture or dislocation. There is no evidence of any significant hematoma formation. The patient is at an increased risk for DVT formation after the procedure. I cannot tell her definitively at this time whether or not there is a deep venous thrombosis present. There does not appear to be any clinical evidence of pulmonary emboli. The patient is going to be given a one-time dose of Lovenox here tonight. She is to return tomorrow when ultrasound is available, as it is not tonight, to receive a left lower extremity venous Doppler. Obviously if there is any deep venous thrombosis then further management will be required. Vital signs are stable at this time. She does need to do range of motion exercises of the left lower extremity to prevent further soreness and cramping. ER warnings are given. Follow-up tomorrow. merari smith [phone] - Results/Orders Results/Orders: X-rays of the pelvis, left hip and femur show no evidence of fracture or dislocation. - EKG/XRAY/CT CT Ordered: No Departure - Departure Clinical Impression: Pain and swelling of left lower extremity Fall at home Qualifiers: Encounter type: initial encounter Qualified Code(s): W19.XXXA - Unspecified fall, initial encounter; Y92.009 - Unspecified place in unspecified non- institutional (private) residence as the place of occurrence of the external cause Disposition: Discharge to Home or Self Care Condition: Fair Departure Forms: ED Discharge - Pt. Copy, Patient Portal Self Enrollment Diet: diabetic diet Activity: increase activity as tolerated Referrals: Festus Li MD [Primary Care Provider] - 1-2 Weeks Home Medications: Ambulatory Orders Citalopram Hydrobromide 40 mg PO DAILY 06/27/16 metFORMIN XR [Glucophage XR] 500 mg PO DAILY 02/27/20 Additional Instructions: The patient is a 49-year-old female presented to emergency room secondary to left hip pain in general left lower extremity pain since her varicose vein procedure about a week ago. It has been made worse by a fall a couple of days ago. X-ray of the left hip, pelvis and femur show no evidence of any fracture or dislocation. There is no evidence of any significant hematoma formation. The patient is at an increased risk for DVT formation after the procedure. I cannot tell her definitively at this time whether or not there is a deep venous thrombosis present. There does not appear to be any clinical evidence of pulmonary emboli. The patient is going to be given a one-time dose of Lovenox here tonight. She is to return tomorrow when ultrasound is available, as it is not tonight, to receive a left lower extremity venous Doppler. Obviously if t here is any deep venous thrombosis then further management will be required. Vital signs are stable at this time. She does need to do range of motion exercises of the left lower extremity to prevent further soreness and cramping. ER warnings are given. Follow-up tomorrow.
[2020-02-27] MEDS ORDERED: ENOXAPARIN SODIUM 100 MG/ML SYG SUBCU ONE (21:02)
[2020-02-27 21:15] VITALS: BP 135/85; O2SAT 98
== END 2020-02-27 21:15 | disposition home or self-care (01) ==
LOC: ER 19:23
DX: M25.552 Pain in left hip (principal); M79.652 Pain in left thigh; M79.89 Other specified soft tissue disorders; F32.9 Major depressive disorder, single episode, unspecified; E11.9 Type 2 diabetes mellitus without complications; I25.2 Old myocardial infarction; Z79.84 Long term (current) use of oral hypoglycemic drugs
CPT/HCPCS: 72170; 73502; 73551; J1650; J1885

== ENCOUNTER 2020-02-28 09:53 | Emergency (ER) | payer OTHER ==
--- NOTE | 2020-02-28 12:35 | ED.PDOC ---
History of Present Illness - General Chief Complaint: General Stated Complaint: left thigh pain radiating down leg, fatigue Time Seen by Provider: 02/28/20 10:21 Source: patient - History of Present Illness Initial Comments: PATIENT PRESENTS FROM THE RADIOLOGY DEPARTMENT, SHE WAS SEEN IN THE ED YESTERDAY FOR LEG PAIN AND WAS SET UP FOR AN ULTRASOUND THIS MORNING, USG OF LEFT LEG REVELED A RIGHT THIGH DVT. SHE ALSO C/O OF ERWIN FOR THE LAST 2 DAYS. Timing/Duration: 1 week Improving Factors: rest Worsening Factors: movement Associated Symptoms: shortness of breath Allergies/Adverse Reactions: Allergies NO KNOWN ALLERGY Allergy (Verified 02/27/20 19:42) Home Medications: Ambulatory Orders Citalopram Hydrobromide 40 mg PO DAILY 06/27/16 metFORMIN XR [Glucophage XR] 500 mg PO DAILY 02/27/20 Clonidine HCl [Clonidine Hydrochloride] 0.2 mg PO BEDTIME #15 tab 02/28/20 Review of Systems - Review of Systems Constitutional: States: no symptoms reported EENTM: States: no symptoms reported Respiratory: States: see HPI, short of breath Cardiology: States: no symptoms reported Gastrointestinal/Abdominal: States: no symptoms reported Genitourinary: States: no symptoms reported Musculoskeletal: States: no symptoms reported Skin: States: no symptoms reported Neurological: States: no symptoms reported Endocrine: States: no symptoms reported Past Medical History (General) - Patient Medical History Hx Seizures: No Hx Stroke: No Hx Dementia: No Hx Asthma: No Hx of COPD: No Hx Cardiac Disorders: Yes - [place] 2014 Hx Congestive Heart Failure: No Hx Pacemaker: No Hx Hypertension: No Hx Thyroid Disease: No Hx Diabetes: Yes - on metformin Hx Gastroesophageal Reflux: No Hx Renal Disease: No Hx Cancer: No Hx of HIV: No Hx Hepatitis C: No Hx MRSA: No Surgical History: appendectomy, cholecystectomy, tonsillectomy, Hysterectomy - Vaccination History Hx Tetanus, Diphtheria Vaccination: Yes Hx Influenza Vaccination: Yes Hx Pneumococcal Vaccination: No - Social History Hx Tobacco Use: No Hx Chewing Tobacco Use: No Hx Alcohol Use: No Hx Substance Use: No Hx Substance Use Treatment: No Hx Depression: Yes Hx Physical Abuse: No Hx Emotional Abuse: No Hx Suspected Abuse: No - Female History Patient : No Family Medical History - Family History Mother Family History: Unknown Physical Exam - Physical Exam General Appearance: Alert, Comfortable, Other - OBESE Neck: non-tender, full range of motion, supple Respiratory: chest non-tender, lungs clear, normal breath sounds, no respiratory distress Cardiovascular/Chest: normal peripheral pulses, regular rate, rhythm, no edema, no gallop Gastrointestinal/Abdominal: normal bowel sounds, non tender, soft, no organomegaly Extremity: normal range of motion, other - MEDIAL AND POSTERIOR LEFT THIGH TENDERNESS, NO PALPABLE CORD. Neurologic: normal mood/affect Skin Exam: normal color, warm/dry Lymphatic: no adenopathy Progress - EKG/XRAY/CT CT Ordered: Yes Departure - Departure Clinical Impression: Deep venous thrombosis Qualifiers: DVT location: lower extremity Affected thrombotic vein of extremity: femoral Chronicity: acute Laterality: left Qualified Code(s): I82.412 - Acute embolism and thrombosis of left femoral vein Time of Disposition: 13:37 Disposition: Discharge to Home or Self Care Condition: Fair Departure Forms: ED Discharge - Pt. Copy, Patient Portal Self Enrollment Instructions: Deep Vein Thrombosis (Blood Clots in the Legs) Diet: full liquid diet Referrals: Festus Li MD [Primary Care Provider] - 1-2 Weeks Prescriptions: Clonidine HCl [Clonidine Hydrochloride] 0.2 mg PO BEDTIME #15 tab Home Medications: Ambulatory Orders Citalopram Hydrobromide 40 mg PO DAILY 06/27/16 metFORMIN XR [Glucophage XR] 500 mg PO DAILY 02/27/20 Clonidine HCl [Clonidine Hydrochloride] 0.2 mg PO BEDTIME #15 tab 02/28/20 Additional Instructions: PLEASE KEEP YOUR FOLLOW UP WITH MR NEXT WEEK.
--- NOTE | 2020-02-28 13:09 | CT ---
EXAM DESCRIPTION: CTA Chest: Computed Tomography. CLINICAL HISTORY: PULMONARY EMBOLISM SUSPECTED. Thrombosis left greater saphenous vein junction with the left common femoral vein. COMPARISON: Duplex ultrasound evaluation left lower extremity on this visit. TECHNIQUE: Spiral-axial scans at 2.5 x 2.5 mm intervals through the pulmonary arteries and chest after bolus infusion of IV contrast. Lung algorithm 2.5-mm axial reconstructions. Coronal and sagittal 2.0 Mm reconstructions. 10.0 mm PE oblique 3-D reformatted images. No adverse reactions. Total Exam DLP: 795 mGy-cm. This exam was performed according to our departmental CT dose-optimization program which includes automated exposure control, adjustment of the mA and/or kV according to patient size and/or use of iterative reconstruction technique; to reduce radiation dose to as low as reasonably achievable (ALARA). FINDINGS: Pulmonary arteries: Contrast density in the main pulmonary artery and bilateral branches is decreased compared to contrast density in the superior vena cava, and the left heart. This study is still diagnostic. No filling defect from the main pulmonary artery to the bilateral subsegmental pulmonary artery branches. Heart and other great vessels: Small coronary artery calcifications but otherwise unremarkable.. Lungs and airways: Atelectasis in the base of the lingula. No abnormal nodules or masses. No acute infiltrate. Pleura: No acute process. Mediastinum and laith: scatter artifact from dense SVC contrast. No enlarged nodes and no dominant soft tissue masses. Soft tissue neck, chest wall, and axillae: Normal size nodes in the bilateral axilla. Upper abdomen: Enlarged fatty density of the liver. No focal masses. Partial visualization of the gallbladder, adrenal glands, and spleen and unremarkable. Osseous structures: Spondylosis thoracic spine at multiple levels. Minimal arthrosis in the glenohumeral joints, and in the clavicle and sternal joints. IMPRESSION: 1. Technically difficult study due to decreased contrast density in the pulmonary artery system compared to the superior vena cava and left heart, but the study is diagnostic. No CTA evidence of acute pulmonary embolus. Minimal atelectasis in the base of the lingula. 2. Small coronary artery calcifications. Hepatomegaly with steatosis. Electronically signed by: Mac Schmidt MD 02/28/2020 1:08 PM [employer]LOOD BANK COORDINATOR
[2020-02-28 14:21] VITALS: BP 154/92; TEMP 98.3; O2SAT 96
== END 2020-02-28 14:10 | disposition home or self-care (01) ==
LOC: ER 09:53
DX: I82.412 Acute embolism and thrombosis of left femoral vein (principal); R06.02 Shortness of breath; I25.2 Old myocardial infarction; E11.9 Type 2 diabetes mellitus without complications; F32.9 Major depressive disorder, single episode, unspecified; Z79.84 Long term (current) use of oral hypoglycemic drugs; Z79.899 Other long term (current) drug therapy

== ENCOUNTER → 2020-02-28 | Outpatient (CLI) | payer OTHER ==
--- NOTE | 2020-02-28 11:07 | US ---
EXAM DESCRIPTION: Venous,Lower Extremity LT: ULTRASOUND. CLINICAL HISTORY: post op pain and swelling COMPARISON: None Available. TECHNIQUE: Ramires-scale and doppler sonographic evaluation of the deep venous system of the left lower extremity. FINDINGS: Doppler evaluation shows decreased Doppler color flow and abnormal Doppler venous waveforms in the left greater saphenous vein at the junction with the left common femoral vein. Grayscale evaluation shows echogenic thrombus in the vein, and decreased venous compression with the transducer. Normal color flow and normal phasicity and augmentation of the left common femoral vein, left femoral vein, and popliteal vein. Also normal color flow and normal phasicity and augmentation of the peroneal, and posterior tibial vein. The left lower extremity deep veins were completely compressible; normal occlusion with transducer pressure. Ramires-scale survey showed no echogenic thrombus within these veins. IMPRESSION: 1. Duplex ultrasound evaluation of the left lower extremity greater saphenous vein junction with the left common femoral vein demonstrating thrombosis. 2. Deep venous system of the left lower extremity showing no evidence of thrombosis. CRITICAL COMMUNICATION: The critical value was communicated directly by Dr. Schmidt via phone call, with Dr. Shorty Li, at approximately 10:45 am, on February 28, 2020. Electronically signed by: Mac Schmidt MD 02/28/2020 11:05 AM COATING ENGINEER
== END ==
LOC: US 08:49
PROVIDERS: ATTEND Family Medicine
DX: I82.812 Embolism and thrombosis of superficial veins of left lower extremity (principal); I82.412 Acute embolism and thrombosis of left femoral vein

== ENCOUNTER → 2020-03-14 | Outpatient (CLI) | payer OTHER | LOC: LAB.O 14:11 | PROVIDERS: ATTEND Internal Medicine Hematology & Oncology | DX: I82.91 Chronic embolism and thrombosis of unspecified vein (principal); D53.9 Nutritional anemia, unspecified; Z79.899 Other long term (current) drug therapy ==

== ENCOUNTER 2020-03-25 22:07 | Emergency (ER) | payer OTHER ==
[2020-03-25 22:22] VITALS: TEMP 97.3
[2020-03-25] MEDS ORDERED: NITROGLYCERIN 0.4 MG 25 EA TAB SL ONE (22:36)
[2020-03-25] MEDS ORDERED: ASPIRIN TABLET 325 MG TAB PO ONE (22:36)
[2020-03-25] MEDS ORDERED: SODIUM CHLORIDE 0.9% (FLUSH) 10 ML SYG IV PRN (22:36)
[2020-03-25] MEDS ORDERED: ONDANSETRON INJ 4 MG/2 ML VIAL IV ONE (22:36)
--- NOTE | 2020-03-25 22:40 | ED.PDOC ---
History of Present Illness - General Chief Complaint: Chest Pain/NV Stated Complaint: Chest pain Time Seen by Provider: 03/25/20 22:30 - History of Present Illness Timing/Duration: 1 hour Severity/Quality: moderate, tightness Location: substernal Chest Pain Radiation: no radiation Activities at Onset: none Prior Chest Pain/Cardiac Workup: other - nstemi Improving Factors: nothing Worsening Factors: nothing Nitro Today/Relief: no nitro taken today Aspirin Treatment Today: no aspirin today Associated Symptoms: denies symptoms Allergies/Adverse Reactions: Allergies NO KNOWN ALLERGY Allergy (Verified 02/27/20 19:42) Home Medications: Ambulatory Orders Citalopram Hydrobromide 40 mg PO DAILY 06/27/16 metFORMIN XR [Glucophage XR] 500 mg PO DAILY 02/27/20 Apixaban [Eliquis Starter Pack] 5 mg PO BID #1 tab 02/28/20 Clonidine HCl [Clonidine Hydrochloride] 0.2 mg PO BEDTIME #15 tab 02/28/20 Review of Systems - Review of Systems Constitutional: Denies: chills, fever EENTM: Denies: eye pain, blurred vision, tearing Respiratory: Denies: cough, stridor Cardiology: States: chest pain. Denies: palpitations, syncope Gastrointestinal/Abdominal: Denies: abdominal pain, diarrhea, nausea Genitourinary: Denies: discharge, frequency, hematuria Skin: Denies: change in color, dryness, lesions Neurological: States: headache - states she hsas had a headache for 2 days. sharp hedacahe. Denies: numbness Past Medical History (General) - Patient Medical History Hx Seizures: No Hx Stroke: No Hx Dementia: No Hx Asthma: No Hx of COPD: No Hx Cardiac Disorders: Yes - NSTEMI Hx Congestive Heart Failure: No Hx Pacemaker: No Hx Hypertension: No Hx Thyroid Disease: No Hx Diabetes: No Hx Gastroesophageal Reflux: Yes Hx Renal Disease: No Hx Cancer: No Hx of HIV: No Hx Hepatitis C: No Hx MRSA: No Surgical History: appendectomy, cholecystectomy, Hysterectomy, other - Vaccination History Hx Tetanus, Diphtheria Vaccination: Yes Hx Influenza Vaccination: Yes Hx Pneumococcal Vaccination: No - Social History Hx Tobacco Use: No Hx Chewing Tobacco Use: No Hx Alcohol Use: No Hx Substance Use: No Hx Substance Use Treatment: No Hx Depression: No Feels Threatened In Home Enviroment: No Feels Threatened In a Relationship: No Hx Physical Abuse: No Hx Emotional Abuse: No Hx Suspected Abuse: No - Female History Patient : No - Triage Comment ED Triage Comment: The patient walked from the ER waiting room into ER room 2 and was placed in bed with rails up. She was alert and oriented times 4 and did not appear in distress. She complained of headache and chest pressure rating a 6 on the pain scale and had no radiation of pain noted. She denied shortness of breath and nausea and had no other noted complaints at the time of assessment. Family Medical History - Family History Mother Family History: Unknown Physical Exam - Physical Exam General Appearance: Alert Eyes, Ears, Nose, Throat Exam: PERRL/EOMI, normal ENT inspection, TMs normal, pharynx normal Neck: non-tender, full range of motion, supple, normal inspection, other - no meningeal signs Respiratory: chest non-tender, lungs clear, normal breath sounds, no respiratory distress, no accessory muscle use Cardiovascular/Chest: normal peripheral pulses, regular rate, rhythm, no edema, no gallop Peripheral Pulses: radial,right: 2+, radial,left: 2+ Gastrointestinal/Abdominal: normal bowel sounds, non tender, soft, no organomegaly, no pulsatile mass Extremity: normal range of motion, non-tender, normal inspection 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 NIH 0 , nO FOAL NEUROLOGICAL FINDINGS Skin Exam: normal color, warm/dry Lymphatic: no adenopathy Progress - EKG/XRAY/CT EKG: Sinus, no ST T wave changes CT: EXAM DESCRIPTION: CTA Chest CLINICAL HISTORY: high pretest probability for - Additional EKG/XRAY/Consults Reason/Comments: HEART sCORE 3 Departure - Departure Clinical Impression: Chest pain, Headache, Hepatomegaly, Hepatic steatosis Clinical Impression: (Ruled Out): Hip pain Time of Disposition: 00:50 - reports releive in her symptoms Disposition: Discharge to Home or Self Care Departure Forms: ED Discharge - Pt. Copy, Patient Portal Self Enrollment Instructions: DI for Chest Pain, Headache, Adult, Chest Pain (DC) Referrals: Festus Li MD [Primary Care Provider] - 1-2 Weeks Home Medications: Ambulatory Orders Citalopram Hydrobromide 40 mg PO DAILY 06/27/16 metFORMIN XR [Glucophage XR] 500 mg PO DAILY 02/27/20 Apixaban [Eliquis Starter Pack] 5 mg PO BID #1 tab 02/28/20 Clonidine HCl [Clonidine Hydrochloride] 0.2 mg PO BEDTIME #15 tab 02/28/20 Additional Instructions: Please follow-up with primary care physician 1 to 2 days Return to emergency department as needed.
--- NOTE | 2020-03-25 23:08 | RAD ---
EXAM DESCRIPTION: Chest,1 View CLINICAL HISTORY: chest pain COMPARISON: 02/03/2016 FINDINGS: Single frontal radiograph view of the chest. Cardiomediastinal silhouette: Normal size and contour. Lungs: No consolidation, pneumothorax, or pleural effusion. Low lung volumes. Bones: No acute osseous abnormality. Leads overlie the chest. Upper abdomen: No abnormality identified. IMPRESSION: 1. No acute pulmonary process identified. Electronically signed by: Jayjay Castro 03/25/2020 11:06 PM [facility]
--- NOTE | 2020-03-25 23:46 | CT ---
EXAM DESCRIPTION: CTA Chest CLINICAL HISTORY: high pretest probability for pe COMPARISON: 02/28/2020 TECHNIQUE: CTA of the chest obtained following the uncomplicated intravenous administration of iodinated contrast. 3-D/MIP reformatted images of the chest available for evaluation. FINDINGS: Chest: Pulmonary arteries: Contrast bolus is adequate.No filling defects identified in the pulmonary arteries to suggest pulmonary embolus. Motion artifact. Thyroid:No abnormalities of the visualized thyroid. Great Vessels:Great vessels have normal anatomic configuration. Thoracic Aorta: Atherosclerotic calcification of the thoracic aorta. Heart:No cardiomegaly, significant pericardial effusion, or coronary artery atherosclerosis Lymph Nodes:No enlarged mediastinal lymph nodes identified. Esophagus:No abnormalities of the esophagus identified. Other:No additional findings. Lungs:No airspace opacities identified. Pleura:No pleural effusion or pneumothorax. Trachea/Airways:No abnormalities of the visualized trachea or airways. Bones:No destructive osseous lesions. Upper Abdomen:Limited images of the upper abdomen demonstrate no definite abnormalities of visualized portions of the , pancreas, spleen, left adrenal gland, or kidneys. Hepatomegaly and hepatic steatosis. Peripherally enhancing posterior nodule in the right hepatic lobe is stable from 2012 and may represent hemangioma or adenoma. Stable 1.7 cm right adrenal adenoma. IMPRESSION: 1. No pulmonary embolus. 2. Hepatomegaly and hepatic steatosis. This exam was performed according to our departmental dose-optimization program, which includes automated exposure control, adjustment of the mA and/or kV according to patient size and/or use of iterative reconstruction technique. Electronically signed by: Jayjay Castro 03/25/2020 11:44 PM [facility]
[2020-03-25] MEDS ORDERED: PROCHLORPERAZINE MALEATE 10 MG TAB PO PRN (23:55)
[2020-03-25] MEDS ORDERED: KETOROLAC TROMETHAMINE 10 MG TAB PO ONE (23:55)
[2020-03-26] MEDS ORDERED: KETOROLAC TROMETHAMINE INJ 30 MG/ML VIAL ONE (00:03)
[2020-03-26] MEDS ORDERED: KETOROLAC TROMETHAMINE INJ 30 MG/ML VIAL IV ONE (00:05)
[2020-03-26 00:21] VITALS: O2SAT 97
[2020-03-26 00:48] VITALS: BP 128/72
== END 2020-03-26 00:48 | disposition home or self-care (01) ==
LOC: ER 22:07
DX: R07.9 Chest pain, unspecified (principal); R51.9 Headache, unspecified; R16.0 Hepatomegaly, not elsewhere classified; K76.0 Fatty (change of) liver, not elsewhere classified; I25.2 Old myocardial infarction; K21.9 Gastro-esophageal reflux disease without esophagitis; Z90.49 Acquired absence of other specified parts of digestive tract; Z79.84 Long term (current) use of oral hypoglycemic drugs; Z79.01 Long term (current) use of anticoagulants
CPT/HCPCS: 71045; 71275; 80048; 80076; 82550; 82553; 83880; 84484; 85025; 85379; 85610; 85730; 93005; A4216; J1885; Q0164

== ENCOUNTER 2020-04-14 21:54 | Emergency (ER) | payer OTHER ==
[2020-04-14] MEDS ORDERED: predniSONE 20 MG TAB PO ONE (22:10)
[2020-04-14] MEDS ORDERED: ACETAMINOPHEN-CAFF-BUTALBITAL 1 EA TAB PO ONE (22:10)
[2020-04-14] MEDS ORDERED: CYCLOBENZAPRINE HCL 10 MG TAB PO ONE (22:11)
--- NOTE | 2020-04-14 22:16 | ED.PDOC ---
History of Present Illness - General Stated Complaint: Left shoulder pain Time Seen by Provider: 04/14/20 21:55 Source: patient Exam Limitations: no limitations - History of Present Illness Initial Comments: The patient is a 50-year-old female presented emergency room secondary to left shoulder pain has been present for the last 3 to 5 days. It is worse with any movement. It is worse with palpation. The patient has tenderness to palpation over the distal end of the pectoralis muscle, the proximal end of the biceps muscle, the lateral aspect of the left trapezius as well as the supraspinatus and infraspinatus muscle. She also has some spasm of the rhomboid. She denies having had any significant injury to the left shoulder before. She does appear to be neurovascularly intact. Pain is made worse with flexion and abduction at the shoulder. Extension does not really cause much pain. Internal rotation does not really cause much pain. She appears to be neurovascularly intact. No crepitus. No pain over the clavicle. No palpable deformity. Normal passive range of motion. Timing/Duration: other - 5 days Severity: moderate Improving Factors: immobilization Worsening Factors: movement Associated Symptoms: denies symptoms Allergies/Adverse Reactions: Allergies NO KNOWN ALLERGY Allergy (Verified 02/27/20 19:42) Home Medications: Ambulatory Orders Citalopram Hydrobromide 40 mg PO DAILY 06/27/16 metFORMIN XR [Glucophage XR] 500 mg PO DAILY 02/27/20 Apixaban [Eliquis Starter Pack] 5 mg PO BID #1 tab 02/28/20 Clonidine HCl [Clonidine Hydrochloride] 0.2 mg PO BEDTIME #15 tab 02/28/20 [id number]-[id number] [Fioricet] 1 ea PO Q8H PRN #21 tab 04/14/20 Cyclobenzaprine HCl [Flexeril] 5 mg PO TID PRN #30 tab 04/14/20 Review of Systems - Review of Systems Constitutional: States: no symptoms reported EENTM: States: no symptoms reported Respiratory: States: no symptoms reported Cardiology: States: no symptoms reported Gastrointestinal/Abdominal: States: no symptoms reported Genitourinary: States: no symptoms reported Musculoskeletal: States: see HPI Skin: States: no symptoms reported Neurological: States: no symptoms reported Endocrine: States: no symptoms reported All other Systems: No Change from Baseline Past Medical History (General) - Patient Medical History Hx Seizures: No Hx Stroke: No Hx Dementia: No Hx Asthma: No Hx of COPD: No Hx Cardiac Disorders: Yes - NSTEMI Hx Congestive Heart Failure: No Hx Pacemaker: No Hx Hypertension: No Hx Thyroid Disease: No Hx Diabetes: No Hx Gastroesophageal Reflux: Yes Hx Renal Disease: No Hx Cancer: No Hx of HIV: No Hx Hepatitis C: No Hx MRSA: No - Vaccination History Hx Tetanus, Diphtheria Vaccination: Yes Hx Influenza Vaccination: Yes Hx Pneumococcal Vaccination: No - Social History Hx Tobacco Use: No Hx Chewing Tobacco Use: No Hx Alcohol Use: No Hx Substance Use: No Hx Substance Use Treatment: No Hx Depression: No Hx Physical Abuse: No Hx Emotional Abuse: No Hx Suspected Abuse: No - Female History Patient : No Family Medical History - Family History Mother Family History: Unknown Physical Exam - Physical Exam General Appearance: Alert, Comfortable, No apparent distress Eye Exam: bilateral normal Ears, Nose, Throat: hearing grossly normal, normal pharynx Neck: non-tender, full range of motion, supple Respiratory: no respiratory distress, no accessory muscle use Cardiovascular/Chest: normal peripheral pulses, no edema Peripheral Pulses: radial,right: 2+, radial,left: 2+ Gastrointestinal/Abdominal: non tender - Obese, soft Rectal Exam: deferred Back Exam: no CVA tenderness, no vertebral tenderness Extremity: no calf tenderness, normal capillary refill, other - See history of present illness 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 No known inciting injury. The patient does need to do stretching and range of motion exercises to help reduce discomfort. Topical heat may also help. We are going to avoid steroids for the moment as the patient still apparently has some work-up for her hypercoagulable state to be performed. She is going to be treated with Fioricet and Flexeril and she can take ypyo-[id number]-mixpboo Aleve 2 tablets twice daily for the next week or 2. She will likely have some discomfort for the next month. I do want her to follow back up with her primary care doctor in 1 to 2 weeks for reevaluation. ER warnings are given. merari smith [id number] Departure - Departure Clinical Impression: Strain of left rotator cuff capsule Qualifiers: Encounter type: initial encounter Qualified Code(s): S46.012A - Strain of muscle(s) and tendon(s) of the rotator cuff of left shoulder, initial encounter Disposition: Discharge to Home or Self Care Condition: Fair Instructions: Rotator Cuff Injury (DC) Diet: diabetic diet Activity: increase activity as tolerated Referrals: Festus Li MD [Primary Care Provider] - 1-2 Weeks Prescriptions: Welafiprmstjt-Atpd-Qmhpcmcxgg [Fioricet] 1 ea PO Q8H PRN #21 tab PRN Reason: Pain Cyclobenzaprine HCl [Flexeril] 5 mg PO TID PRN #30 tab PRN Reason: Muscle Spasms Home Medications: Ambulatory Orders Citalopram Hydrobromide 40 mg PO DAILY 06/27/16 metFORMIN XR [Glucophage XR] 500 mg PO DAILY 02/27/20 Apixaban [Eliquis Starter Pack] 5 mg PO BID #1 tab 02/28/20 Clonidine HCl [Clonidine Hydrochloride] 0.2 mg PO BEDTIME #15 tab 02/28/20 Pmroafvwufzip-Mnon-Fipfmofmbz [Fioricet] 1 ea PO Q8H PRN #21 tab 04/14/20 Cyclobenzaprine HCl [Flexeril] 5 mg PO TID PRN #30 tab 04/14/20 Additional Instructions: The patient is a 50-year-old female presented emergency room secondary to what appears to be primarily a left rotator cuff strain. No known inciting injury. The patient does need to do stretching and range of motion exercises to help reduce discomfort. Topical heat may also help. We are going to avoid steroids for the moment as the patient still apparently has some work-up for her hypercoagulable state to be performed. She is going to be treated with Fioricet and Flexeril and she can take knww-vfv-enzundj Aleve 2 tablets twice daily for the next week or 2. She will likely have some discomfort for the next month. I do want her to follow back up with her primary care doctor in 1 to 2 weeks for reevaluation. ER warnings are given.
[2020-04-14 22:20] VITALS: TEMP 98.8; O2SAT 98
[2020-04-14 22:25] VITALS: BP 168/82
== END 2020-04-14 22:41 | disposition home or self-care (01) ==
LOC: ER 21:54
DX: S46.012A Strain of muscle(s) and tendon(s) of the rotator cuff of left shoulder, initial encounter (principal); I25.2 Old myocardial infarction; K21.9 Gastro-esophageal reflux disease without esophagitis; Z79.899 Other long term (current) drug therapy; Z79.01 Long term (current) use of anticoagulants; Z79.84 Long term (current) use of oral hypoglycemic drugs; X58.XXXA Exposure to other specified factors, initial encounter; Y92.9 Unspecified place or not applicable